=== PATIENT | male | born 1970 | race Caucasian/White ===

== ENCOUNTER 2016-10-19 10:52 | Inpatient (IN) | payer BC ==
[~2016-10-19] VITALS: Ht 185.4 cm; Wt 90.7 kg
[2016-10-19] MEDS ORDERED: DiphenhydrAMINE HCL 50 MG/ML VIAL ONE (10:57)
[2016-10-19] MEDS ORDERED: METHYLPREDNISOLONE 125 MG VIAL IV STA (10:58)
[2016-10-19] MEDS ORDERED: FAMOTIDINE IV INJ 40 MG in DEXTROSE 5% 100ML 100 ML IV STA (10:58)
[2016-10-19] MEDS ORDERED: SODIUM CHLORIDE 0.9% 1000ML 1,000 ML IV STA (10:59)
[2016-10-19] MEDS ORDERED: ONDANSETRON INJ 2 MG/ML 2 ML VIAL IV STA (10:59)
[2016-10-19 11:14] LABS: BASO % 0.2 %; BASO ABS # 0.01 K/uL (0-0.2); COMPLETE YES; EOS % 1.8 %; HEMATOCRIT 45.7 % (42-52); IG% 0.2 %; LYMPH % 47.8 %; LYMPH ABS # 2.34 K/uL (1.2-3.4); MEAN CELL VOLUME 90.5 fL (80-100); MEAN CORPUSCULAR HEMOGLOBIN 31.1 pg (25-34); MEAN CORPUSCULAR HGB CONC 34.4 g/dl (32-36); MEAN PLATELET VOLUME 10.7 fL (7.4-10.4); MONO % 8.8 %; NEUT % 41.2 %; PLATELET COUNT 270 K/uL (130-400); RED BLOOD COUNT 5.05 M/uL (4.7-6.1)
[2016-10-19] MEDS ORDERED: ASPIRIN 81 MG CHEW PO STA (11:15)
[2016-10-19 11:30] LABS: ALT/SGPT 26 U/L (12-78); BLOOD UREA NITROGEN 13 mg/dl (7-18); BUN/CREATININE RATIO 12.1 (10-20); CALCIUM 8.7 mg/dl (8.5-10.1); CARBON DIOXIDE 26 mmol/L (21-32); CHLORIDE 107 mmol/L (98-107); GLUCOSE 125 mg/dl (70-99); POTASSIUM 3.9 mmol/L (3.5-5.1); SODIUM 142 mmol/L (136-145)
[2016-10-19 11:35] LABS: ALKALINE PHOSPHATASE 43 U/L (45-117); AST/SGOT 24 U/L (15-37)
--- NOTE | 2016-10-19 11:42 | DIAGNOSTIC IMAGING REPORT ---
CHEST ONE VIEW PORTABLE HISTORY: Short of breath. COMPARISON: None. FINDINGS: The lungs are clear. Cardiac silhouette is normal in size. No pleural effusions. No pneumothorax. IMPRESSION: No acute process. Electronically signed by: Marco A Oakley M.D. 10/19/2016 11:41 AM Dictated Date/Time: 10/19/2016 11:40 AM
[2016-10-19] MEDS ORDERED: METOPROLOL TARTRATE 1 MG/ML VIAL IV STA (12:06)
[2016-10-19] MEDS ORDERED: KETO0.0216 OPB (12:27)
[2016-10-19 12:30] VITALS: Ht 185.4 cm; Wt 90.7 kg
[2016-10-19] MEDS: SODIUM CHLORIDE 0.9% 1000ML 1,000 ML IV SCH ×2 (12:56→22:29)
[2016-10-19] MEDS ORDERED: ENOXAPARIN 40 MG/0.4 ML SYR SC SCH (13:00)
[2016-10-19] MEDS ORDERED: ONDANSETRON INJ 2 MG/ML 2 ML VIAL IV PRN (13:00)
[2016-10-19] MEDS ORDERED: ACETAMINOPHEN 325 MG TAB PO PRN (13:00)
[2016-10-19] MEDS ORDERED: ASCO1POW10 (13:02)
[2016-10-19] MEDS ORDERED: EPINEPHRINE ADULT AUTO-INJECT 0.3 MG SYR IM PRN (13:15)
[2016-10-19] MEDS ORDERED: IBUPROFEN 600 MG TAB PO PRN (13:30)
[2016-10-19] MEDS ORDERED: TRIAMCINOLONE ACET 0.1% OINT 15 GM TUBE EXT PRN (13:30)
[2016-10-19 13:54] VITALS: BP 117/72; PULSE 101; TEMP 37; O2SAT 95
--- NOTE | 2016-10-19 14:07 | History and Physical ---
History & Physical Date & Time of Service: Oct 19, 2016 at 13:35 Chief Complaint: Allergic Reaction Primary Care Physician: No Doctor, Assigned History of Present Illness Source: patient, spouse, clinic records, hospital records 45 yo M with h/o localized venom response last year presents with acute onset of generalized redness across his shoulders and chest, generalized hives, generalized pruritis after being stung by three stinging insects near his shed today. Prior to the episode he was feeling well and has no past medical history. He reports that his ears were ringing and he could not hear well initially. His put him in the car and drove him to the ER. In the car he developed chest tightness--"feels like a metal suzanne is in my chest, or like I have to cough and can't get it out"--he then vomited in the car and reports feeling somewhat better. He also had some diaphoresis. On arrival to the ER, he was given Solumedrol 125 IV, Famotidine 40 IV, Zofran 4mg IV and 1L NS bolus. With the chest pain, he was given ASA 324mg. EKG revealed rapid atrial fibrillation thought 2/2 the catecholamine surge. By the time of this exam, he was already improved from a symptom standpoint with some mild remaining chest pain and just some mild nausea. Case was discussed with Dr. Dexter Gruber. He otherwise denies any headache, visual changes, abdominal pain, joint or muscle aches, diarrhea, GI bleeding, or food allergies. He recently moved to the [place] area one year ago. Past Medical/Surgical History Medical Problems: (1) Bee sting reaction Status: Chronic (2) No chronic diseases present Status: Chronic Family History No pertinent family history Social History Smoking Status: Never Smoker Smokeless Tobacco Use: No Alcohol Use: none Drug Use: none Marital Status: Housing status: lives with significant other Occupational Status: unemployed Immunizations History of Influenza Vaccine: Unknown History of Tetanus Vaccine?: Unknown History of Pneumococcal: Unknown History of Hepatitis B Vaccine: Unknown Multi-Drug Resistant Organisms History of MDRO: No Allergies Coded Allergies: BEE STING (Unverified Allergy, Severe, SWELLING, HIVES, CHEST TIGHTNESS, ) Home Medications Scheduled Ascorbic Acid (Vitamin C), 500 MG DAILY Ketotifen Fumarate (Ophth) (Zaditor 0.025% Oph), 1 DROP OPB BID Review of Systems Ten systems were reviewed and negative except as indicated in HPI. Physical Exam Vital Signs Date Time Temp Pulse Resp B/P (MAP) Pulse Ox O2 Delivery O2 Flow Rate FiO2 10/19/16 13:07 101 18 133/84 96 Room Air 10/19/16 13:05 121 10/19/16 12:27 86 24 99 10/19/16 12:22 81 12 99 10/19/16 12:17 81 19 117/69 100 10/19/16 12:12 98 9 100 10/19/16 12:07 92 18 99 10/19/16 12:06 88 117/69 10/19/16 12:02 87 23 124/91 100 10/19/16 11:57 86 17 100 10/19/16 11:52 83 20 100 10/19/16 11:47 122/86 10/19/16 11:37 91 19 99 10/19/16 11:32 127/80 10/19/16 11:22 105 19 100 10/19/16 11:21 131/94 10/19/16 11:17 135/98 10/19/16 11:07 88 20 99 10/19/16 11:03 137 10/19/16 11:02 124/95 10/19/16 11:00 36.7 118 24 120/78 94 Room Air 10/19/16 11:00 95 Room Air 10/19/16 11:00 96 Room Air 10/19/16 10:55 120/78 GEN: WNWD, in no acute distress, alert and appropriate, NC in place on 2L and no tachypnea. HEENT: NC/AT, PERRL, normal sclerae/conjunctivae, EOMI, MMM, no hives in mouth but are noted generalized over face and some on legs, no LAD CARDIO: tachy rate, S1/2 heard without m/g/r LUNGS: CTA bilaterally, no crackles, rales or wheezes, good diaphragmatic excursion ABD: soft, non-tender, non-distended, no rebound or guarding, +BS EXTREMITY: RP and DP palpable 2+ bilat, no LE swelling or edema, extremities are warm and well-perfused NEURO: CN 2-12 intact, sensation intact throughout, coordination intact MUSC: 5/5 strength throughout, no focal deficits SKIN: no erythema or hives on head/hair area, large local erythema present across shoulders in a shawl distribution, no chest, back or truncal redness or hives, small amount of pinpoint hives scattered on anterior upper thighs, no redness present there. Diagnostics Laboratory Results Results Past 24 Hours Test 10/19/16 10:55 Range/Units White Blood Count 4.90 4.8-10.8 K/uL Red Blood Count 5.05 4.7-6.1 M/uL Hemoglobin 15.7 14.0-18.0 g/dL Hematocrit 45.7 42-52 % Mean Corpuscular Volume 90.5 80-100 fL Mean Corpuscular Hemoglobin 31.1 25-34 pg Mean Corpuscular Hemoglobin Concent 34.4 32-36 g/dl Platelet Count 270 130-400 K/uL Mean Platelet Volume 10.7 7.4-10.4 fL Neutrophils (%) (Auto) 41.2 % Lymphocytes (%) (Auto) 47.8 % Monocytes (%) (Auto) 8.8 % Eosinophils (%) (Auto) 1.8 % Basophils (%) (Auto) 0.2 % Neutrophils # (Auto) 2.02 1.4-6.5 K/uL Lymphocytes # (Auto) 2.34 1.2-3.4 K/uL Monocytes # (Auto) 0.43 0.11-0.59 K/uL Eosinophils # (Auto) 0.09 0-0.5 K/uL Basophils # (Auto) 0.01 0-0.2 K/uL RDW Standard Deviation 45.1 36.4-46.3 fL RDW Coefficient of Variation 13.7 11.5-14.5 % Immature Granulocyte % (Auto) 0.2 % Immature Granulocyte # (Auto) 0.01 0.00-0.02 K/uL Sodium Level 142 136-145 mmol/L Potassium Level 3.9 3.5-5.1 mmol/L Chloride Level 107 98-107 mmol/L Carbon Dioxide Level 26 21-32 mmol/L Anion Gap 9.0 3-11 mmol/L Blood Urea Nitrogen 13 7-18 mg/dl Creatinine 1.10 0.60-1.40 mg/dl Estimated GFR () 93.5 Estimated GFR (Non- 80.6 BUN/Creatinine Ratio 12.1 10-20 Random Glucose 125 70-99 mg/dl Calcium Level 8.7 8.5-10.1 mg/dl Total Bilirubin 0.6 0.2-1 mg/dl Direct Bilirubin 0.1 0-0.2 mg/dl Aspartate Amino Transf (AST/SGOT) 24 15-37 U/L Alanine Aminotransferase (ALT/SGPT) 26 12-78 U/L Alkaline Phosphatase 43 45-117 U/L Troponin I < 0.015 0-0.045 ng/ml Total Protein 7.1 6.4-8.2 gm/dl Albumin 3.9 3.4-5.0 gm/dl Diagnostic Radiology CHEST ONE VIEW PORTABLE HISTORY: Short of breath. COMPARISON: None. FINDINGS: The lungs are clear. Cardiac silhouette is normal in size. No pleural effusions. No pneumothorax. IMPRESSION: No acute process. EKG afib 115 Impression Assessment and Plan 45 yo M with no medical problems presents with acute anaphylaxis without shock to the ER after Hymenoptera sting 1. Anaphylaxis-shock not present, epi not administered in ER. However, important to note that he had a localized reaction to Hymenoptera sting last year, and this second sting is much worse. He also reports larger reactions than normal to mosquito bites in the past. Denies food or other drug allergies and no family history of anaphylaxis is known. Strongly recommend he be discharged with information on how to self-treat anaphylaxis at home while awaiting help, Epi-pen autoinjector, and referral to [facility]. Meds given in the ER above have caused the symptoms to calm down somewhat. Chest pain is resolving and erythema/hives are resolving per . He no longer reports feeling nautious and he is not working to breathe. Ordered small course prednisone 40mg daily, Zyrtec 10mg daily with PRN Benadryl for itching and topical steroids for localized itching as needed. Motrin PRN pain. Epi-Pen autoinjector PRN with instructions order placed PRN recurrent anaphylaxis on floor. 2. Atrial fibrillation with RVR-no risk factors for heart disease, this is a new diagnosis for him and is likely 2/2 catecholamine surge from body's response to above. Discussed with Cardiology and decided against antigoaulation at this time in case of recurrence overnight. HR has already come down into the 80s. Metoprolol 25mg PO was given on admission. Cont to monitor on telemetry. Cards consult placed and will order TTE to rule out structural heart abnormalities. DVT proph-Lovenox 40 FULL CODE Dispo to telemetry. Likely home in am. DO [facility] Care Telemetry Resuscitation Status FULL RESUSCITATION VTE Prophylaxis VTE Risk Assessment Done? Y/N: Yes Risk Level: Moderate Given or contraindicated: Enoxaparin (Lovenox)SQ
[2016-10-19] MEDS ORDERED: RIVAROXABAN 20 MG TAB PO ONE (15:00)
[2016-10-19] MEDS ORDERED: DILTIAZEM BOLUS / DRIP IV STA (15:01)
--- NOTE | 2016-10-19 15:15 | Cardiology Consultation ---
Cardiology Consultation Date of Consultation: Oct 19, 2016 History of Present Illness Gigi Mtecalf is a 45 year old male seen in cardiology consultation per the request of Dr. Fang for evaluation of atrial fibrillation. 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 He is not yet established with a primary care provider and his number needed to see cardiology in the past. He describes himself as being physically active at baseline. He per dissipates in a cross fit class 3-4 times per week and enjoys the outdoors. This morning he was working in his yard and he was stung by an insect 3 times once on the head, once on the neck, and once on the right arm. Within 10 minutes he noted abrupt onset of itching. His skin turned bright red. He felt heavy perspiration and associated chest tightness. He had his spouse drive him to the emergency room and in route he began to have severe chest tightness in his mid chest. On arrival to the emergency room he was rapidly assessed and treated appropriately for anaphylactic reaction receiving 125 mg of IV Solu- Medrol, IV Pepcid, and IV diphenhydramine with subsequent improvement in his symptoms. He was found to have atrial fibrillation with rapid ventricular rate as documented on presenting EKG performed on 10/19/2016 at 11:[address] segment depression was noted. He was admitted for further observation. When I had assessed him in room 2:15 his skin redness is completely resolved. His chest tightness had completely resolved. And he stated that the symptoms that prompted him to come to the hospital had resolved. He had no subjective sensation that his heart was beating fast or irregular and on telemetry atrial fibrillation with mildly elevated ventricular rate was noted at 115 bpm when I had seen him. He has no known past heart problems. He has no chronic illnesses. He recalls growing up in [place] and had been stung by insects in the past without any significant difficulty. He notes that last fall he was stung in the arm and had a significant swelling reaction. History Past Medical History: 1. Bee sting reaction No other chronic diseases Past Surgical History: None relevant Social History: His and nonsmoker. He is and lives with his significant other. He works as a professor for [employer] Family History: He notes no family history of known heart disease. Review Of Systems See above for pertinent positives & negatives. A total of 10 systems reviewed and were otherwise negative. Allergies Coded Allergies: BEE STING (Unverified Allergy, Severe, SWELLING, HIVES, CHEST TIGHTNESS, ) Medications Reported Home Medications Medications Dose Route/Sig Max Daily Dose Days Date Category Vitamin C (Ascorbic Acid) 1 Pow Pow 500 Mg DAILY 10/19/16 Reported Zaditor 0.025% Oph (Ketotifen Fumarate (Ophth)) 0.025 % Derick 1 Drop OPB BID 10/19/16 Reported Physical Exam Vital Signs (Last 8hrs): Last 8 Hrs Date Time Temp Pulse Resp B/P (MAP) Pulse Ox O2 Delivery O2 Flow Rate FiO2 10/19/16 13:54 37.0 101 20 117/72 (87) 95 Room Air 10/19/16 13:40 97 18 101/72 95 10/19/16 13:07 101 18 133/84 96 Room Air 10/19/16 13:05 121 10/19/16 12:30 Nasal Cannula 10/19/16 12:27 86 24 99 10/19/16 12:22 81 12 99 10/19/16 12:17 81 19 117/69 100 10/19/16 12:12 98 9 100 10/19/16 12:07 92 18 99 10/19/16 12:06 88 117/69 10/19/16 12:02 87 23 124/91 100 10/19/16 11:57 86 17 100 10/19/16 11:52 83 20 100 10/19/16 11:47 122/86 10/19/16 11:37 91 19 99 10/19/16 11:32 127/80 10/19/16 11:22 105 19 100 10/19/16 11:21 131/94 10/19/16 11:17 135/98 10/19/16 11:07 88 20 99 10/19/16 11:03 137 10/19/16 11:02 124/95 10/19/16 11:00 36.7 118 24 120/78 94 Room Air 10/19/16 11:00 95 Room Air 10/19/16 11:00 96 Room Air 10/19/16 10:55 120/78 General Appearance: Alert and Oriented x3. NAD. Head: Normocephalic Atraumatic. Eyes: PERRLA, EOMI, conjunctiva and sclera clear Neck: Supple. No carotid bruits noted. No JVD. No HJD. Respiratory: Breath sounds clear to auscultation bilaterally. No w/r/r. Cardiovascular: Tachycardic, irregular S1 and S2 noted. No murmurs, rubs, gallops. PMI non displace. Abdomen: Normal bowel sounds, soft nontender. no abdominal bruits. Extremities: No edema, no clubbing or cyanosis. distal pulses 2/4 bilaterally. Neuro: No focal deficits. Psychiatric: Normal affect. Data Last Resulted 10/19/16 10:55 Red Blood Count 5.05, Mean Corpuscular Volume 90.5, Mean Corpuscular Hemoglobin 31.1, Mean Corpuscular Hemoglobin Concent 34.4, Mean Platelet Volume 10.7, Neutrophils (%) (Auto) 41.2, Lymphocytes (%) (Auto) 47.8, Monocytes (%) (Auto) 8.8, Eosinophils (%) (Auto) 1.8, Basophils (%) (Auto) 0.2, Neutrophils # (Auto) 2.02, Lymphocytes # (Auto) 2.34, Monocytes # (Auto) 0.43, Eosinophils # (Auto) 0.09, Basophils # (Auto) 0.01 Last Resulted 10/19/16 10:55 Past 24 Hours Test 10/19/16 10:55 Range/Units Troponin I < 0.015 0-0.045 ng/ml EKG and telemetry as outlined in the history of present illness Assessment & Plan Impression: 45-year-old male 1. Acute anaphylactic reaction after bee sting 2. Atrial fibrillation with rapid ventricular rate Discussion/recommendations: The patient presented with chest tightness however this was relieved with treatment for his anaphylactic reaction and I do not think it represents a cardiac complaint. He is completely asymptomatic at the present time in the PCU having been treated with the IV steroids and antihistamines approximate 4 hours ago. Atrial fibrillation with mildly elevated ventricular rate is present, but the patient has no subjective awareness of this. History of past cardiac history. His CHADSVASC score is low, likely 0. When I had initially discussed this case with Dr Lucas in the emergency room, I was hopeful that the patient would revert to sinus rhythm without further intervention. He however has remained in atrial fibrillation. The present time I recommend anticoagulation and I'm going to start him on Xarelto 20 mg 1 and then daily. His risk of stroke is relatively low, but by anticoagulating him now, it allows for additional rhythm monitoring therapy if necessary as his hospital stay develops. His airway status is stable, and I think the likelihood that he will need an emergency airway is low and that he appears to be doing well from a allergic reaction standpoint. I'm going to start him on IV diltiazem for further rate control and for this will also encourage chemical cardioversion. Given his treatment with Xarelto, and the rare possibility of having a reaction to ibuprofen, I'm going to stop his as needed ibuprofen dose and favor treatment with antihistamine and prednisone as already ordered. A one-time dose metoprolol tartrate has also been ordered. Jarrod Gruber D.O.
[2016-10-19] MEDS ORDERED: METOPROLOL TARTRATE 25 MG TAB PO STA (15:26)
[2016-10-19] MEDS ORDERED: DILTIAZEM HCL 5 MG/ML 5 ML VIAL IV SCH (15:30)
[2016-10-19] MEDS: DILTIAZEM HCL INJ 125 MG in DEXTROSE 5% 100ML IV PRN (15:39)
--- NOTE | 2016-10-19 15:42 | EMERGENCY ROOM VISIT NOTE ---
History Report prepared by Ros: Bonifacio Acharya Under the Supervision of: Dr. Augustine Lucas D.O. First contact with patient: 10:54 History of Present Illness The patient is a 45 year old male who presents to the Emergency Room via ambulance with complaints of a persistent allergic reaction that occurred around 30 minutes ago. He says that he was stung 3 times by bees or wasps around 45 minutes ago, and then 15 minutes after being stung, he came out in hives and he was itchy all over. The patient states that he could not hear well because his ears were ringing. In the ambulance, the patient says that his chest got tight and he vomited, which eased the chest pain a bit. However, he notes that he still has some chest tightness. The patient adds that he got a bit sweaty in the ambulance, which has since gotten better. He says that he got stung last year and had an allergic reaction then, but he has never had his airway closed off. The patient denies any chronic medical problems. Source of History: patient Onset: 30 minutes ago Position: other (global - allergic reaction) Quality: other (stung by bees or wasps - itching, hives all over) Timing: other (persistent) Associated Symptoms: + diaphoresis (in ambulance), + chest pain (tightness) , + vomiting Note: Associated symptoms: Ears ringing, couldn't hear well. Review of Systems See HPI for pertinent positives & negatives. A total of 10 systems reviewed and were otherwise negative. Past Medical & Surgical Medical Problems: (1) Anaphylaxis (2) Atrial fibrillation with RVR (3) Bee sting reaction (4) No chronic diseases present Family History No pertinent family history Social History Marital Status: Housing Status: lives with family Occupation Status: unemployed Current/Historical Medications Scheduled Ascorbic Acid (Vitamin C), 500 MG DAILY Ketotifen Fumarate (Ophth) (Zaditor 0.025% Oph), 1 DROP OPB BID Allergies Coded Allergies: BEE STING (Unverified Allergy, Severe, SWELLING, HIVES, CHEST TIGHTNESS, ) Physical Exam Vital Signs Date Time Temp Pulse Resp B/P (MAP) Pulse Ox O2 Delivery O2 Flow Rate FiO2 10/19/16 12:30 Nasal Cannula 10/19/16 12:27 86 24 99 6/3/17 12:22 81 12 99 10/19/16 12:17 81 19 117/69 100 10/19/16 12:12 98 9 100 10/19/16 12:07 92 18 99 10/19/16 12:06 88 117/69 10/19/16 12:02 87 23 124/91 100 10/19/16 11:57 86 17 100 10/19/16 11:52 83 20 100 10/19/16 11:47 122/86 10/19/16 11:37 91 19 99 10/19/16 11:32 127/80 10/19/16 11:22 105 19 100 10/19/16 11:21 131/94 10/19/16 11:17 135/98 10/19/16 11:07 88 20 99 10/19/16 11:03 137 10/19/16 11:02 124/95 10/19/16 11:00 36.7 118 24 120/78 94 Room Air 10/19/16 11:00 95 Room Air 10/19/16 11:00 96 Room Air 10/19/16 10:55 120/78 Physical Exam GENERAL: sitting up in bed, disheveled, ill-appearing EYE EXAM: normal conjunctiva OROPHARYNX: no exudate, no erythema, lips, buccal mucosa, and tongue normal and mucous membranes are moist NECK: supple, no nuchal rigidity, no adenopathy, non-tender LUNGS: Clear to auscultation. Normal chest wall mechanics HEART: Tachycardic and irregularly irregular. ABDOMEN: abdomen soft, non-tender, normo-active bowel sounds, no masses, no rebound or guarding. BACK: Back is symmetrical on inspection and there is no deformity, no midline tenderness, no CVA tenderness. SKIN: diffuse urticaria and erythema on chest, back, arms, and legs UPPER EXTREMITIES: upper extremities are grossly normal. LOWER EXTREMITIES: No pitting edema. NEURO EXAM: Normal sensorium, cranial nerves II-XII grossly intact, normal speech, no gross weakness of arms, no gross weakness of legs. Medical Decision & Procedures ER Provider Diagnostic Interpretation: X-ray results as stated below per my review and the radiologist's interpretation : CHEST ONE VIEW PORTABLE HISTORY: Short of breath. COMPARISON: None. FINDINGS: The lungs are clear. Cardiac silhouette is normal in size. No pleural effusions. No pneumothorax. IMPRESSION: No acute process. Electronically signed by: Marco A Oakley M.D. 10/19/2016 11:41 AM Dictated Date/Time: 10/19/2016 11:40 AM Laboratory Results 10/19/16 10:55 Red Blood Count 5.05, Mean Corpuscular Volume 90.5, Mean Corpuscular Hemoglobin 31.1, Mean Corpuscular Hemoglobin Concent 34.4, Mean Platelet Volume 10.7, Neutrophils (%) (Auto) 41.2, Lymphocytes (%) (Auto) 47.8, Monocytes (%) (Auto) 8.8, Eosinophils (%) (Auto) 1.8, Basophils (%) (Auto) 0.2, Neutrophils # (Auto) 2.02, Lymphocytes # (Auto) 2.34, Monocytes # (Auto) 0.43, Eosinophils # (Auto) 0.09, Basophils # (Auto) 0.01 10/19/16 10:55 Test 10/19/16 10:55 White Blood Count 4.90 K/uL (4.8-10.8) Red Blood Count 5.05 M/uL (4.7-6.1) Hemoglobin 15.7 g/dL (14.0-18.0) Hematocrit 45.7 % (42-52) Mean Corpuscular Volume 90.5 fL (80-100) Mean Corpuscular Hemoglobin 31.1 pg (25-34) Mean Corpuscular Hemoglobin Concent 34.4 g/dl (32-36) Platelet Count 270 K/uL (130-400) Mean Platelet Volume 10.7 fL (7.4-10.4) Neutrophils (%) (Auto) 41.2 % Lymphocytes (%) (Auto) 47.8 % Monocytes (%) (Auto) 8.8 % Eosinophils (%) (Auto) 1.8 % Basophils (%) (Auto) 0.2 % Neutrophils # (Auto) 2.02 K/uL (1.4-6.5) Lymphocytes # (Auto) 2.34 K/uL (1.2-3.4) Monocytes # (Auto) 0.43 K/uL (0.11-0.59) Eosinophils # (Auto) 0.09 K/uL (0-0.5) Basophils # (Auto) 0.01 K/uL (0-0.2) RDW Standard Deviation 45.1 fL (36.4-46.3) RDW Coefficient of Variation 13.7 % (11.5-14.5) Immature Granulocyte % (Auto) 0.2 % Immature Granulocyte # (Auto) 0.01 K/uL (0.00-0.02) Anion Gap 9.0 mmol/L (3-11) Estimated GFR () 93.5 Estimated GFR (Non- 80.6 BUN/Creatinine Ratio 12.1 (10-20) Calcium Level 8.7 mg/dl (8.5-10.1) Total Bilirubin 0.6 mg/dl (0.2-1) Direct Bilirubin 0.1 mg/dl (0-0.2) Aspartate Amino Transf (AST/SGOT) 24 U/L (15-37) Alanine Aminotransferase (ALT/SGPT) 26 U/L (12-78) Alkaline Phosphatase 43 U/L (45-117) Troponin I < 0.015 ng/ml (0-0.045) Total Protein 7.1 gm/dl (6.4-8.2) Albumin 3.9 gm/dl (3.4-5.0) Laboratory results per my review. Medications Administered Medications (Trade) Dose Ordered Sig/Hossein Route Start Time Stop Time Status Last Admin Dose Admin Diphenhydramine HCl (Benadryl Inj) 50 mg STK-MED ONCE .ROUTE 10/19/16 10:57 10/19/16 10:58 DC 10/19/16 11:22 50 MG Famotidine 40 mg/ Dextrose 104 ml @ 200 mls/hr NOW STAT IV 10/19/16 10:58 10/19/16 11:29 DC 10/19/16 11:05 200 MLS/HR Methylprednisolone Sodium Succinate (Solu-Medrol IV) 125 mg NOW STAT IV 10/19/16 10:58 10/19/16 11:00 DC 10/19/16 11:23 125 MG Sodium Chloride 1,000 ml @ 999 mls/hr Q1H1M STAT IV 10/19/16 10:59 10/19/16 11:59 DC 10/19/16 11:27 999 MLS/HR Ondansetron HCl (Zofran Inj) 4 mg NOW STAT IV 10/19/16 10:59 10/19/16 11:01 DC 10/19/16 11:00 4 MG Aspirin (Aspirin Chew) 324 mg NOW STAT PO 10/19/16 11:15 10/19/16 11:16 DC 10/19/16 11:33 324 MG ECG Indication: other (allergic reaction) Rate (beats per minute): 113 Rhythm: atrial fibrillation (with RVR) Findings: no ectopy, other (normal axis) Change: Repeat ECG: A flutter with variable block with a rate of 88 bpm, normal axis. ED Course ED COURSE: Vital signs were reviewed and showed tachycardic vitals. The patients medical record was reviewed The above diagnostic studies were performed and reviewed. ED treatments and interventions as stated above. 1053: The patient was evaluated in room B1. A complete history and physical examination was performed. 1058: Ordered Solu-Medrol IV 125 mg IV, Famotidine 40 mg/Dextrose 104 ml @ 200 mls/hr IV, Zofran Inj 4 mg IV, NSS 1000 ml @ 999 mls/hr IV. 1115: Ordered Aspirin Chew 324 mg PO. 1151: I reevaluated the patient and he is feeling much better. 1206: Ordered Lopressor IV 2.5 mg IV. 1222: I discussed the patient with Dr. Yasmani Gleason cardiology. 1224: I discussed the patient with Dr. Leoncio Gleason classified copy control clerk - she will evaluate the patient for further treatment. 1232: Upon reevaluation, the patient is resting comfortably.I discussed my findings with the patient and he understands and agrees with the treatment plan. Based on the patients age, coexisting illnesses, exam and lab findings the decision to treat as an inpatient was made. The patient remained stable while under my care. The patient will be evaluated for further management. Medical Decision Differential diagnoses includes but is not limited to acute coronary syndrome, myocardial infarction, pericarditis, pulmonary embolus, aortic dissection, pneumonia, pneumothorax, musculoskeletal, shingles, esophageal. Medication Reconciliation: I attest that I have personally reviewed the patient' s current medication list. Blood pressure screening: Patient was found to have normal blood pressure on screening and does not require follow-up. Patient is a 45-year-old male who presents the ER following being stung by 3 separate bees. He is complaining of chest pressure and shortness of breath. On exam he is in A. fib with RVR and his heart rate is in the 140s. CBC along with BMP, LFTs and bilirubin was unremarkable. Troponin was negative. EKG shows A. fib with RVR. Patient was given IV famotidine, steroids and Benadryl with improvement of his symptoms which included itching, rash and shortness of breath. Heart rate trended down to 90s. Discussed case with cardiology and they recommended observation overnight. Discussed case with internal medicine. Patient was admitted with rate controlled A. fib with a secondary to an allergic reaction. He did receive aspirin. I did not give him any nitroglycerin as I feel this is likely secondary to the catecholamine surge causing the A. fib which is causing his chest pain. Consults Time Called: 1220 Consulting Physician: Dr. Yasmani Gleason cardiology Returned Call: 1222 I discussed the patient with Dr. Yasmani Gleason cardiology. Additional Consults: Time Called: 1222 Consulted Physician: Dr. Leoncio Gleason classified copy control clerk Returned Call: 1224 Additional Comments: I discussed the patient with Dr. Leoncio Gleason classified copy control clerk - she will evaluate the patient for further treatment. Impression Primary Impression: Allergic reaction Additional Impression: Atrial fibrillation with RVR Scribe Attestation The scribe's documentation has been prepared under my direction and personally reviewed by me in its entirety. I confirm that the note above accurately reflects all work, treatment, procedures, and medical decision making performed by me. Departure Information Dispostion Being Evaluated By Hospitalist Referrals No Doctor, Assigned (PCP) Problem Qualifiers Primary Impression: Allergic reaction Encounter type: initial encounter Qualified Codes: T78.40XA - Allergy, unspecified, initial encounter
[2016-10-19 16:00] VITALS: O2SAT 93
[2016-10-19 16:10] VITALS: BP 113/68; PULSE 108; TEMP 36.7; O2SAT 94
[2016-10-19 19:54] VITALS: BP 134/72; PULSE 79; TEMP 36.9; O2SAT 96
[2016-10-20] VITALS (7 sets, daily range): BP systolic 98–120; BP diastolic 57–72; PULSE 75–87; TEMP 36.3–36.9; O2SAT 96–98
[2016-10-20] MEDS ORDERED: CETIRIZINE HCL 10 MG TAB PO SCH (09:00)
--- NOTE | 2016-10-20 09:32 | Cardiology Follow-Up ---
Subjective General Date of Service: Oct 20, 2016. Chief Complaint: follow up AF Pt evaluation today including: conversation w/ patient, physical exam History of Present Illness The patient is a 45 year old male seen in follow up. Chest tightness has resolved overnight. He does note that as he rested overnight he felt his heart rate "calm down" but did note that he could feel it beating irregularly. Telemetry reveals AF , 50-70 bpm range on Diltiazem infusion at 5 mg/hr. Allergies Coded Allergies: BEE STING (Unverified Allergy, Severe, SWELLING, HIVES, CHEST TIGHTNESS, ) Social History Smoking Status: Never Smoker Hx Alcohol Use - Type And Amou: Yes (2-3 glasses of wine/beer 3-4 days/week) Hx Substance Use - Type And Am: No Problem List Medical Problems: (1) Allergic reaction Status: Acute Physical Exam Vital Signs Last Vital Signs Documentation Date Time Temp Pulse Resp B/P (MAP) Pulse Ox O2 Delivery O2 Flow Rate FiO2 10/20/16 07:44 36.3 75 20 120/71 (87) 98 Room Air Physical Exam Constitutional: Level of Distress: NAD Neck: supple Lungs: Auscultation: no wheezing, no rales/crackles, no rhonchi Cardiovascular: Heart Auscultation: no murmurs, no rubs, no gallops, irregular rate rhythm Abdomen: Inspection & Palpation: soft, non-distended, no tenderness, guarding & rebound Extremities: no edema Neurologic: Gait & Station: pertinent finding (no focal deficits ) Assessment and Plan Assessment and Plan Impression: 45 year old male atrial fibrillation, onset seemingly correlated with anaphylactic reaction to bee sting Plan: Pt on Xarelto for stroke prophylaxis. Prednisone and antihistamines for allergic reaction. Continue diltiazem. Onset was 1030 am on 10/19/16, so now 23 hours in to episode. Will check resting echocardiogram and if there is no evidence of structural heart disease, will consider adding flecainide for attempted chemical cardioversion. Laboratory Results Last 24 Hours Test 10/19/16 10:55 White Blood Count 4.90 K/uL Red Blood Count 5.05 M/uL Hemoglobin 15.7 g/dL Hematocrit 45.7 % Mean Corpuscular Volume 90.5 fL Mean Corpuscular Hemoglobin 31.1 pg Mean Corpuscular Hemoglobin Concent 34.4 g/dl Platelet Count 270 K/uL Mean Platelet Volume 10.7 fL Neutrophils (%) (Auto) 41.2 % Lymphocytes (%) (Auto) 47.8 % Monocytes (%) (Auto) 8.8 % Eosinophils (%) (Auto) 1.8 % Basophils (%) (Auto) 0.2 % Neutrophils # (Auto) 2.02 K/uL Lymphocytes # (Auto) 2.34 K/uL Monocytes # (Auto) 0.43 K/uL Eosinophils # (Auto) 0.09 K/uL Basophils # (Auto) 0.01 K/uL RDW Standard Deviation 45.1 fL RDW Coefficient of Variation 13.7 % Immature Granulocyte % (Auto) 0.2 % Immature Granulocyte # (Auto) 0.01 K/uL Sodium Level 142 mmol/L Potassium Level 3.9 mmol/L Chloride Level 107 mmol/L Carbon Dioxide Level 26 mmol/L Anion Gap 9.0 mmol/L Blood Urea Nitrogen 13 mg/dl Creatinine 1.10 mg/dl Estimated GFR () 93.5 Estimated GFR (Non- 80.6 BUN/Creatinine Ratio 12.1 Random Glucose 125 mg/dl Calcium Level 8.7 mg/dl Total Bilirubin 0.6 mg/dl Direct Bilirubin 0.1 mg/dl Aspartate Amino Transf (AST/SGOT) 24 U/L Alanine Aminotransferase (ALT/SGPT) 26 U/L Alkaline Phosphatase 43 U/L Troponin I < 0.015 ng/ml Total Protein 7.1 gm/dl Albumin 3.9 gm/dl
[2016-10-20] MEDS: DILTIAZEM HCL INJ 125 MG in DEXTROSE 5% 100ML IV PRN (12:20)
--- NOTE | 2016-10-20 13:07 | Cardiology Progress Note ---
Cardiology Progress Note Date of Service Oct 20, 2016. Cardiology Progress Note I reviewed patients echocardiogram. The LV myocardial thickness and LV systolic function are normal. Trace MR and Trace TR are present. The LA size is normal. Pt remains in AF at 99-102 bpm on cardizem gtt, 5 mg /hr. Will add flecainide 200 mg PO x 1 now. Katy Gruber, DO
[2016-10-20] MEDS ORDERED: FLECAINIDE ACETATE 100 MG TAB PO ONE (13:15)
--- NOTE | 2016-10-20 15:42 | Progress Note ---
Medicine Progress Note Date & Time of Visit: Oct 20, 2016 at 15:42 . Subjective Doing well. Converted to normal sinus rhythm this afternoon. No chest pain or shortness of breath. No residual symptoms from anaphylaxis. . Objective Last 8 Hrs Date Time Temp Pulse Resp B/P (MAP) Pulse Ox O2 Delivery O2 Flow Rate FiO2 10/20/16 15:00 36.7 86 17 110/72 (85) 96 Room Air 10/20/16 12:00 Room Air 10/20/16 11:42 36.9 85 17 102/57 (72) 96 Room Air 10/20/16 08:00 98 Room Air 10/20/16 07:44 36.3 75 20 120/71 (87) 98 Room Air Physical Exam: General- no distress Eyes- no periorbital edema Neck- no JVD; no stridor Lungs- clear to auscultation Heart- regular, no murmur or gallop Abdomen- normal bowel sounds, soft, nontender Extremities- no pretibial edema or calf tenderness Neuro- alert, oriented . Assessment & Plan ATRIAL FIBRILLATION Probably secondary to anaphylaxis. Seen in consultation by Cardiology. Electrolytes were normal. Started on diltiazem infusion and anticoagulated with rivaroxaban. Echocardiogram showed normal left ventricular wall thickness, wall motion, and systolic function; left atrial size was normal. Converted to normal sinus rhythm. CHADSVASC score = 0. No need for any cardiovascular medications at this time. ANAPHYLAXIS Stung by stinging insects in his yard (the insects were not specifically identified). Developed urticaria followed by chest tightness and vomiting. Came to the ED for evaluation. Found to be tachycardic in atrial fibrillation. Blood pressures were stable. Treated with diphenhydramine, famotidine, methylprednisolone, IV fluids with resolution of symptoms. Discharge on methylprednisolone taper. Given sample and prescription for EpiPen. Advised to have diphenhydramine available for PRN use in the future. Advised to request referral to see hand engraver as an outpatient. DISPOSITION Discharge to home. Arrangements made for Family Medicine follow-up with Dr. Crawford. Cardiology follow-up with Dr. Gruber. . Consultants: Cardiology with Dr. Gruber. . Procedures: Cardiac monitoring Intravenous fluids Intravenous meds Echocardiogram . Current Inpatient Medications: Current Inpatient Medications Medications (Trade) Dose Ordered Sig/Hossein Route Start Time Stop Time Status Last Admin Dose Admin Acetaminophen (Tylenol Tab) 650 mg Q4H PRN PO 10/19/16 13:00 11/18/16 12:59 Ondansetron HCl (Zofran Inj) 4 mg Q6H PRN IV 10/19/16 13:00 11/18/16 12:59 Epinephrine (Epipen) 0.3 mg UD PRN IM 10/19/16 13:15 11/18/16 13:14 Prednisone (PredniSONE TAB) 40 mg DAILY PO 10/20/16 09:00 10/23/16 08:59 10/20/16 07:33 40 MG Cetirizine HCl (zyrTEC TAB) 10 mg QAM PO 10/20/16 09:00 11/19/16 08:59 10/20/16 07:33 10 MG Diphenhydramine HCl (Benadryl Cap) 25 mg Q6H PRN PO 10/19/16 13:30 11/18/16 13:29 Triamcinolone Acetonide (Kenalog 0.1% Oint) 1 appln UD PRN EXT 10/19/16 13:30 11/18/16 13:29 Rivaroxaban (Xarelto Tab) 20 mg QDD PO 10/20/16 16:45 11/19/16 16:44
[2016-10-20] MEDS ORDERED: EPP3/2 IM (15:46)
[2016-10-20] MEDS ORDERED: METH4PAK PO (15:46)
[2016-10-20] MEDS ORDERED: DIPH1TAB87 PO (15:46)
--- NOTE | 2016-10-20 15:53 | Discharge Instructions ---
Discharge Instructions Date of Service Oct 20, 2016. Admission Reason for Admission: anaphylaxis, atrial fibrillation . Discharge Discharge Diagnosis / Problem: anaphylaxis, atrial fibrillation Discharge Goals Goal(s): Improve disease control Activity Recommendations Activity Limitations: resume your previous activity . Instructions / Follow-Up Instructions / Follow-Up APPOINTMENTS: FAMILY MEDICINE 10/24/2016 1:10 PM Anam Crawford MD (you may reschedule appt if necessary via [facility]) INSTRUCTIONS: Keep EpiPen and diphenhydramine (Benadryl) available at all times and use as needed for allergic reactions. Take 2 pills of diphenhydramine (Benadryl) for mild-moderate reaction. Use EpiPen for severe reaction. Ask Dr. Crawford for referral to an pharmaceutical laboratory technician. Seek medical attention if you have: * severe allergic reaction * severe swelling of lips or tongue * trouble swallowing * chest pain or trouble breathing * any unanswered questions or concerns Call 911 if symptoms are severe. Call if you have any questions or problems. My cell # is [phone]. You can also reach a [facility] hospitalist on duty at [facility] 24 hours a day by calling [phone]. Please take good care of yourself. Shahram Vazquez . Current Hospital Diet Patient's current hospital diet: Regular Diet Discharge Diet Recommended Diet: Regular Diet Pending Studies Studies pending at discharge: no Medical Emergencies . Who to Call and When: Medical Emergencies: If at any time you feel your situation is an emergency, please call 911 immediately. . Non-Emergent Contact Non-Emergency issues call your: Primary Care Provider, Hospital Doctor . . "Provider Documentation" section prepared by Shahram Vazquez. . VTE Core Measure Inpt VTE Proph given/why not?: Other Anticoagulation (rivaroxaban)
[2016-10-20] MEDS ORDERED: RIVAROXABAN 20 MG TAB PO SCH (16:45)
--- NOTE | 2016-10-20 18:55 | Discharge Summary ---
Discharge Summary Date of Service Oct 20, 2016. Discharge Summary Admission Date: Oct 19, 2016 at 13:01 Discharge Date: Oct 20, 2016 Discharge Disposition: Home Principal Diagnosis: atrial fibrillation with rapid ventricular response anaphylaxis secondary to stinging insect . Procedures: Cardiac monitoring Intravenous fluids Intravenous meds Echocardiogram . Consultations: Cardiology with Dr. Gruber. . Medication Reconciliation New Medications: Diphenhydramine Hcl (Benadryl Allergy) 25 Mg Tab 50 MG PO Q6H PRN for ALLERGIC REACTION, #30 TAB 5 Refills No prescription necessary. Take 2 pills immediately after insect sting. Epinephrine (Epipen) 0.3 Mg/0.3 Ml Inj 0.3 MG IM UD PRN for severe allergic reaction, #1 BOX 2 Refills Methylprednisolone (Medrol Dosepak) 4 Mg Lg 1 PKT PO UD for 6 Days, #1 PKT Continued Medications: Ascorbic Acid (Vitamin C) 1 Pow Pow 500 MG DAILY Ketotifen Fumarate (Ophth) (Zaditor 0.025% Oph) 0.025 % Derick 1 DROP OPB BID, BTL Admission Information HPI (per Admitting provider): 45 yo M with h/o localized venom response last year presents with acute onset of generalized redness across his shoulders and chest, generalized hives, generalized pruritis after being stung by three stinging insects near his shed today. Prior to the episode he was feeling well and has no past medical history. He reports that his ears were ringing and he could not hear well initially. His put him in the car and drove him to the ER. In the car he developed chest tightness--"feels like a metal suzanne is in my chest, or like I have to cough and can't get it out"--he then vomited in the car and reports feeling somewhat better. He also had some diaphoresis. On arrival to the ER, he was given Solumedrol 125 IV, Famotidine 40 IV, Zofran 4mg IV and 1L NS bolus. With the chest pain, he was given ASA 324mg. EKG revealed rapid atrial fibrillation thought 2/2 the catecholamine surge. By the time of this exam, he was already improved from a symptom standpoint with some mild remaining chest pain and just some mild nausea. Case was discussed with Dr. Dexter Gruber. He otherwise denies any headache, visual changes, abdominal pain, joint or muscle aches, diarrhea, GI bleeding, or food allergies. He recently moved to the [place] area one year ago. . Physical Exam (per Admitting): GEN: WNWD, in no acute distress, alert and appropriate, NC in place on 2L and no tachypnea. HEENT: NC/AT, PERRL, normal sclerae/conjunctivae, EOMI, MMM, no hives in mouth but are noted generalized over face and some on legs, no LAD CARDIO: tachy rate, S1/2 heard without m/g/r LUNGS: CTA bilaterally, no crackles, rales or wheezes, good diaphragmatic excursion ABD: soft, non-tender, non-distended, no rebound or guarding, +BS EXTREMITY: RP and DP palpable 2+ bilat, no LE swelling or edema, extremities are warm and well-perfused NEURO: CN 2-12 intact, sensation intact throughout, coordination intact MUSC: 5/5 strength throughout, no focal deficits SKIN: no erythema or hives on head/hair area, large local erythema present across shoulders in a shawl distribution, no chest, back or truncal redness or hives, small amount of pinpoint hives scattered on anterior upper thighs, no redness present there. Hospital Course ATRIAL FIBRILLATION Probably secondary to anaphylaxis. Seen in consultation by Cardiology. Electrolytes were normal. Started on diltiazem infusion and anticoagulated with rivaroxaban. Echocardiogram showed normal left ventricular wall thickness, wall motion, and systolic function; left atrial size was normal. Converted to normal sinus rhythm. CHADSVASC score = 0. No need for any cardiovascular medications at this time. ANAPHYLAXIS Stung by stinging insects in his yard (the insects were not specifically identified). Developed urticaria followed by chest tightness and vomiting. Came to the ED for evaluation. Found to be tachycardic in atrial fibrillation. Blood pressures were stable. Treated with diphenhydramine, famotidine, methylprednisolone, IV fluids with resolution of symptoms. Discharge on methylprednisolone taper. Given sample and prescription for EpiPen. Advised to have diphenhydramine available for PRN use in the future. Advised to request referral to see mold cutting machine operator as an outpatient. DISPOSITION Discharge to home. Arrangements made for Family Medicine follow-up with Dr. Crawford. Cardiology follow-up with Dr. Gruber. . Discharge Instructions Date of Service Oct 20, 2016. Admission Reason for Admission: anaphylaxis, atrial fibrillation . Discharge Discharge Diagnosis / Problem: anaphylaxis, atrial fibrillation Discharge Goals Goal(s): Improve disease control Activity Recommendations Activity Limitations: resume your previous activity . Instructions / Follow-Up Instructions / Follow-Up APPOINTMENTS: FAMILY MEDICINE 10/24/2016 1:10 PM Anam Crawford MD (you may reschedule appt if necessary via [employer]) INSTRUCTIONS: Keep EpiPen and diphenhydramine (Benadryl) available at all times and use as needed for allergic reactions. Take 2 pills of diphenhydramine (Benadryl) for mild-moderate reaction. Use EpiPen for severe reaction. Ask Dr. Crawford for referral to an mold cutting machine operator. Seek medical attention if you have: * severe allergic reaction * severe swelling of lips or tongue * trouble swallowing * chest pain or trouble breathing * any unanswered questions or concerns Call 911 if symptoms are severe. Call if you have any questions or problems. My cell # is [phone]. You can also reach a [facility] hospitalist on duty at [facility] 24 hours a day by calling [phone]. Please take good care of yourself. Shahram Vazquez . Current Hospital Diet Patient's current hospital diet: Regular Diet Discharge Diet Recommended Diet: Regular Diet Pending Studies Studies pending at discharge: no Medical Emergencies . Who to Call and When: Medical Emergencies: If at any time you feel your situation is an emergency, please call 911 immediately. . Non-Emergent Contact Non-Emergency issues call your: Primary Care Provider, Hospital Doctor . . "Provider Documentation" section prepared by Shahram Vazquez. . VTE Core Measure Inpt VTE Proph given/why not?: Other Anticoagulation (rivaroxaban) . Additional Copies To Jarrod Gruber D.O.; Anam Crawford M.D.(KEVAN
--- NOTE | 2016-10-21 08:26 | ECHOCARDIOGRAM REPORT ---
*NOTICE TO RECEIVING LIBERTARIAN AGENCY This information is strictly Confidential and protected under [place] law. [place] law prohibits you from making any further disclosure of this information unless further disclosure is expressly permitted by the written consent of the person to whom it pertains or is authorized by law. A general authorization for the release of medical or other information is not sufficient for this purpose. Hospital accepts no responsibility if the information is made available to any other person, INCLUDING THE PATIENT. Interpretation Summary * Name: DI HOLCOMB Study Date: 10/20/2016 11:38 AM BP: 120/71 mmHg * Patient Location: C.2T\S\E215\S\1 HR: 93 * : 1970 (M/d/yyyy) Gender: Male Height: 73 in * Age: 45 yrs Ethnicity: CA Weight: 199 lb * Ordering Physician: Jarrod Gruber * Referring Physician: Self, Referred * Performed By: Ramírez Zaman RDCS * * Reason For Study: A-FIB * BSA: 2.1 m2 * -- Conclusions -- * Atrial fibrillation with controlled ventricular rate was present during the echocardiogram examination. * The left ventricular wall motion is normal. * There is normal left ventricular wall thickness. * Ejection Fraction = 55-60%. * The left atrial size is normal. * There is trace mitral regurgitation. * There is trace tricuspid regurgitation. * Doppler findings do not suggest pulmonary hypertension. Procedure Details * A complete two-dimensional transthoracic echocardiogram was performed (2D, M-mode, Doppler and color flow Doppler). * The study was technically adequate. Left Ventricle * The left ventricle is normal in size. * There is normal left ventricular wall thickness. * Left ventricular systolic function is normal. * Ejection Fraction = 55-60%. * The left ventricular wall motion is normal. Right Ventricle * The right ventricle is normal size. * The right ventricular systolic function is normal as assessed by tricuspid annular plane systolic excursion (TAPSE) (normal >1.5 cm). Atria * The left atrial size is normal. * Right atrial size is normal. * There is no evidence of atrial septal defect, but resolution does not allow assessment for a patent foramen ovale. Mitral Valve * The mitral valve is normal. * There is no mitral valve stenosis. * There is trace mitral regurgitation. Tricuspid Valve * The tricuspid valve is normal. * There is no tricuspid stenosis. * There is trace tricuspid regurgitation. * Doppler findings do not suggest pulmonary hypertension. Aortic Valve * The aortic valve is trileaflet. * Aortic stenosis is absent. * There is no significant aortic regurgitation. Pulmonic Valve * The pulmonary valve is not well seen, but the Doppler examination is normal without significant regurgitation or stenosis. Great Vessels * The aortic root and proximal ascending aorta are normal sized. Pericardium/Pleural * There is no pericardial effusion. Great Vessels * Normal inferior vena cava diameter and respiratory variation suggests normal central venous pressure. MMode 2D Measurements and Calculations IVSd 0.77 cm IVSs 1.3 cm LVIDd 5.7 cm LVIDs 3.8 cm LVPWd 0.65 cm LVPWs 1.3 cm IVS/LVPW 1.2 FS 33.5 % EDV(Teich) 158.3 ml ESV(Teich) 61.0 ml EF(Teich) 61.5 % EDV(cubed) 182.6 ml ESV(cubed) 53.8 ml EF(cubed) 70.5 % % IVS thick 73.1 % % LVPW thick 107.1 % LV mass(C)d 144.9 grams LV mass(C)dI 67.5 grams/m\S\2 LV mass(C)s 178.3 grams LV mass(C)sI 83.1 grams/m\S\2 SV(Teich) 97.3 ml SI(Teich) 45.3 ml/m\S\2 SV(cubed) 128.8 ml SI(cubed) 60.0 ml/m\S\2 Ao root diam 3.7 cm Ao root area 11.0 cm\S\2 ACS 1.9 cm LA dimension 3.5 cm asc Aorta Diam 3.4 cm LA/Ao 0.94 LVOT diam 2.1 cm LVOT area 3.5 cm\S\2 LVAd ap4 27.2 cm\S\2 LVLd ap4 8.0 cm EDV(MOD-sp4) 75.0 ml LVAs ap4 13.6 cm\S\2 LVLs ap4 6.8 cm ESV(MOD-sp4) 23.0 ml EF(MOD-sp4) 69.3 % LVAd ap2 25.2 cm\S\2 LVLd ap2 8.0 cm EDV(MOD-sp2) 65.0 ml LVAs ap2 13.9 cm\S\2 LVLs ap2 7.0 cm ESV(MOD-sp2) 23.0 ml EF(MOD-sp2) 64.6 % SV(MOD-sp4) 52.0 ml SI(MOD-sp4) 24.2 ml/m\S\2 SV(MOD-sp2) 42.0 ml SI(MOD-sp2) 19.6 ml/m\S\2 Doppler Measurements and Calculations MV E max chaz 90.3 cm/sec MV dec time 0.14 sec Ao V2 max 112.1 cm/sec Ao max PG 5.1 mmHg Ao max PG (full) -0.96 mmHg SHANTAL(V,A) 3.9 cm\S\2 SHANTAL(V,D) 3.9 cm\S\2 LV V1 max PG 6.1 mmHg LV V1 max 123.4 cm/sec
== END 2016-10-20 16:34 | disposition home or self-care (01) | DRG 918 ==
LOC: C.EDB 10:54 → C.2T 13:01 → ENRESERV 13:28
PROVIDERS: ADMIT Hospitalist; ATTEND Hospitalist
DX: T63.441A Toxic effect of venom of bees, accidental (unintentional), initial encounter (principal); I48.91 Unspecified atrial fibrillation; Z79.899 Other long term (current) drug therapy; Z91.030 Bee allergy status